=== PATIENT | female | born 1955 | race Two or more races ===

== ENCOUNTER 2024-12-04 09:46 | Outpatient (CLI) | payer OTHER | END 2024-12-04 10:20 | disposition home or self-care (01) | LOC: MRI 09:46 | PROVIDERS: ATTEND Radiology Diagnostic Radiology | DX: M54.16 Radiculopathy, lumbar region (principal) | CPT/HCPCS: 72148 ==

== ENCOUNTER 2025-02-13 11:22 | Outpatient (CLI) | payer OTHER | END 2025-02-13 11:29 | disposition home or self-care (01) | LOC: TOM 11:22 | PROVIDERS: ATTEND Neurological Surgery | DX: M43.16 Spondylolisthesis, lumbar region (principal) ==